=== PATIENT | female | born 1975 | race Caucasian/White ===

== ENCOUNTER 2022-12-27 15:52 | Emergency (ER) | payer OTHER ==
[~2022-12-27] VITALS: Ht 154.9 cm; Wt 68.0 kg
[~2022-12-27 15:52] MED LIST: NAPR500 PO; PSEU120ER PO
[2022-12-27 16:40] LABS: BASOPHILS ABSOLUTE AUTO 0.03 K/mm3 (0.00-0.23); BASOPHILS PERCENT AUTO 0 % (0-2); EOSINOPHILS ABSOLUTE AUTO 0.11 K/mm3 (0.00-0.68); EOSINOPHILS PERCENT AUTO 2 % (0-6); Hemoglobin 11.4 g/dL (11.5-16.0); IMMATURE GRAN ABSOLUTE AUTO 0.02 K/mm3 (0.00-0.10); IMMATURE GRAN PERCENT AUTO 0 % (0-1); LYMPHOCYTES PERCENT AUTO 36 % (21-46); MONOCYTES ABSOLUTE AUTO 0.61 K/mm3 (0.16-1.47); MONOCYTES PERCENT AUTO 9 % (4-13); Mean Corpuscular HGB 34.1 pg (26.0-34.0); Mean Corpuscular HGB Conc 34.5 g/dL (31.5-36.5); Mean Corpuscular Volume 99 fL (80-100); Mean Platelet Volume 9.6 fL (9.1-12.4); NEUTROPHILS ABSOLUTE AUTO 3.52 K/mm3 (1.96-9.15); NEUTROPHILS PERCENT AUTO 53 % (41-73); Platelet Count 381 K/mm3 (150-400); RDW Coefficient Variation 13.3 % (11.7-14.2); RDW Standard Deviation 48.4 fL (35.1-46.3); Red Blood Cell Count 3.34 M/mm3 (3.80-5.20); White Blood Cell Count 6.69 K/mm3 (4.00-11.30)
[2022-12-27 16:49] LABS: Albumin, Blood 3.7 g/dL (3.4-5.0); Bilirubin, Total 0.3 mg/dL (0.1-1.0); Bun/Creatinine Ratio 9.4 (12.0-20.0); Calcium, Blood 7.4 mg/dL (8.5-10.1); Creatinine, Blood 0.74 mg/dL (0.40-1.00); Globulin, Blood 3.8 g/dL (2.2-4.0); Potassium, Blood 3.6 mmol/L (3.5-5.5); Total Protein, Blood 7.5 g/dL (6.4-8.2)
[2022-12-27 17:16] LABS: Source, Urine Clean Catch
[2022-12-27 17:41] LABS: Appearance, Urine Clear (Clear); Bilirubin, Urine Neg (Neg); Blood, Urine 2+ (Neg); Glucose Qualitative, Urine Neg (Neg); Ketones, Urine Neg (Neg); Leukocyte Esterase, Urine Neg (Neg); Nitrite, Urine Neg (Neg); Protein, Urine Neg (Neg); Urobilinogen, Urine NORM (Normal)
[2022-12-27 17:46] LABS: Color, Urine Pale Yellow (P-Yellow)
[2022-12-27 17:47] LABS: Bacteria Mod /hpf; Squamous Epithelial Cells Rare /hpf (Few); White Blood Cells, Urine 0-2 /hpf (0-5)
[2022-12-27] MEDS ORDERED: SYNTHROID125 MC1 PO (19:12)
[2022-12-27] MEDS ORDERED: PROM25 PO (22:01)
[2022-12-27] MEDS ORDERED: ONDA4ODT SL (22:01)
[2022-12-27] MEDS ORDERED: Pepcid40 MG PO (22:01)
== END 2022-12-27 22:20 | disposition home or self-care (01) ==
LOC: ER 15:52
PROVIDERS: Student in an Organized Health Care Education/Training Program
DX: R10.84 Generalized abdominal pain (principal); Z79.890 Hormone replacement therapy; Z79.899 Other long term (current) drug therapy; Z88.2 Allergy status to sulfonamides
CPT/HCPCS: 36415; 74177; 80053; 81001; 81025; 83690; 85025; 87086; 93005; 93010; 96374-59; 99284-25; A9270; J2405; Q9967

== ENCOUNTER → 2024-10-27 | Outpatient (CLI) | payer BC ==
[~2024-10-27] MED LIST changes: +ONDA4ODT SL; +PROM25 PO; +Pepcid40 MG PO; +SYNTHROID125 MC1 PO
[2024-11-04 17:13] LABS: HPV HIGH RISK BY TMA Not Detected; HPV SOURCE Cervical
== END ==
LOC: LAB SHORT 14:45 → LAB 14:45
PROVIDERS: Nurse Practitioner Family
DX: Z12.4 Encounter for screening for malignant neoplasm of cervix (principal)
CPT/HCPCS: 87624; G0123

== ENCOUNTER 2024-11-28 11:49 | Day surgery (SDC) | payer BC ==
[~2024-11-28] VITALS: Ht 154.9 cm; Wt 70.3 kg
[~2024-11-28 11:49] MED LIST changes: +LEVOTHYROXINE137 M11 PO; +Lactated Ringer's 1,000 ML IV ONE; +MELATONIN5 M1 PO; +[UNRECOGNIZED DRUG - REMARK]; +propofoL 50 ML IV ONE
[2024-11-28] MEDS ORDERED: Lactated Ringer's 1,000 ML IV ONE (12:25)
[2024-11-28 13:47] VITALS: BP 108/73
== END 2024-11-28 13:52 | disposition home or self-care (01) ==
LOC: ORSCSDS 11:49
PROVIDERS: Surgery
PROC: 0DJD8ZZ Inspection of Lower Intestinal Tract, Via Natural or Artificial Opening Endoscopic (ICD-10-PCS; principal; 2024-11-28 13:00)
DX: Z12.11 Encounter for screening for malignant neoplasm of colon (principal); E03.9 Hypothyroidism, unspecified; M35.00 Sjogren syndrome, unspecified; Z79.899 Other long term (current) drug therapy
CPT/HCPCS: J2704; J7120